=== PATIENT | female | born 1985 | race Caucasian/White ===

== ENCOUNTER 2017-01-16 19:49 | Emergency (ER) | payer OTHER ==
[2017-01-16 20:05] VITALS: BP 101/55; PULSE 76; RESP 18; TEMP 97.8
--- NOTE | 2017-01-16 20:17 | ED ---
Upper Extremity HPI - General Chief Complaint: Extremity Injury, Upper Stated Complaint: back & shoulder pain Time Seen by Provider: 01/16/17 20:07 Source: patient, RN notes reviewed Mode of arrival: ambulatory Limitations: no limitations - History of Present Illness Initial Comments: This a 31-year-old female presents emergency department to complaint of left shoulder injury. Patient states that at her rental house she was going up outside stairs and states the stairs gave him she fell through. Patient complains of of old pain after she tried to cut herself. Patient states she does have some soreness to her back but states that she had no injury to it. Patient states that she also has an abrasion to her right leg and she states her tetanus is up-to-date. Patient denies a paresthesias. Patient states she had a prior left clavicle fracture. She denies any head injury no LOC. Place: outdoors - Related Data Previous Rx's Medication Instructions Recorded Azithromycin [Zithromax] 0 mg PO DIRECTED #6 tab 04/13/15 Fluticasone Nasal [place] [Flonase 2 spray NASAL DAILY #1 bottle 04/13/15 Nasal [place]] Phenazopyridine HCl [Pyridium] 200 mg PO TID #6 tablet 04/13/15 Hydrocodone/Acetaminophen [Simpson 1 tab PO Q6HR PRN #15 tab 01/16/17 5-325] Allergies Allergy/AdvReac Type Severity Reaction Status Date / Time No Known Allergies Allergy Verified 01/16/17 20:05 Review of Systems ROS Statement: Those systems with pertinent positive or pertinent negative responses have been documented in the HPI. ROS Other: All systems not noted in ROS Statement are negative. Past Medical History Past Medical History: No Reported History Additional Past Medical History / Comment(s): sciatica History of Any Multi-Drug Resistant Organisms: None Reported Past Surgical History: Section Past Psychological History: No Psychological Hx Reported Smoking Status: Current every day smoker Past Alcohol Use History: None Reported Past Drug Use History: None Reported General Exam Limitations: no limitations General appearance: alert, in no apparent distress Neck exam: Present: normal inspection. Absent: tenderness, meningismus, lymphadenopathy Respiratory exam: Present: normal lung sounds bilaterally. Absent: respiratory distress, wheezes, rales, rhonchi, stridor Cardiovascular Exam: Present: regular rate, normal rhythm, normal heart sounds. Absent: systolic murmur, diastolic murmur, rubs, gallop, clicks Extremities exam: Present: other (Patient has old clavicle fracture deformity noted, left shoulder pain with range of motion though his for range of motion neurovascular intact there is no obvious deformity through the humeral region minimal tenderness with palpation) Back exam: Present: full ROM, tenderness (Mild left low back). Absent: paraspinal tenderness, vertebral tenderness Neurological exam: Present: alert, oriented X3, CN II-XII intact, reflexes normal. Absent: motor sensory deficit Course Vital Signs 01/16/17 20:01 Temperature 97.8 F Pulse Rate 76 Respiratory 18 Rate Blood Pressure 101/55 O2 Sat by Pulse 100 Oximetry Medical Decision Making - Medical Decision Making 31-year-old female presented to emergency department for shoulder pain. Patient had a fall through steps. Patient has an old clavicle fracture the radiologist felt this is new. Patient has good range of motion at this time. Patient's neurovascular intact she is recommended to follow-up with orthopedics. Disposition Clinical Impression: Nonunion of clavicle fracture, Strain of shoulder Disposition: HOME SELF-CARE Condition: Stable Instructions: Shoulder Sprain (ED) Additional Instructions: Please return to the Emergency Department if symptoms worsen or any other concerns. Prescriptions: Hydrocodone/Acetaminophen [Simpson 5-325] 1 tab PO Q6HR PRN #15 tab PRN Reason: Pain Referrals: None,Stated [Primary Care Provider] - 1-2 days Shane Regalado MD [STAFF PHYSICIAN] - 1-2 days Time of Disposition: 20:57
--- NOTE | 2017-01-16 20:31 | XR ---
EXAMINATION TYPE: XR shoulder complete LT DATE OF EXAM: 01/16/2017 CLINICAL HISTORY: Fall and subsequent left shoulder pain TECHNIQUE: Three views of the left shoulder are obtained. COMPARISON: None. FINDINGS: There is no acute fracture/dislocation evident in the left shoulder. However there is an obliquely oriented mid clavicular fracture with slight comminution as there is a 3 mm osseous fragmen t of the proximal clavicle. There is a 1.6 cm inferior displacement of the distal fracture fragment o n the oblique view with widening to 2.5 cm on the scapular Y view. No displaced rib fractures are charisse reciated. The acromioclavicular and glenohumeral joint spaces appear within normal limits. IMPRESSION: 1. Obliquely oriented mid clavicular fracture with inferior displacement of the distal fracture fragm ent. 2. There is no acute fracture or dislocation in the left shoulder. No displaced rib fractures.
== END 2017-01-16 21:05 | disposition home or self-care (01) ==
LOC: EC 19:49
DX: S46.912A Strain of unspecified muscle, fascia and tendon at shoulder and upper arm level, left arm, initial encounter (principal); S42.002K Fracture of unspecified part of left clavicle, subsequent encounter for fracture with nonunion; F17.200 Nicotine dependence, unspecified, uncomplicated; W10.9XXA Fall (on) (from) unspecified stairs and steps, initial encounter; Y92.89 Other specified places as the place of occurrence of the external cause
CPT/HCPCS: 99283

== ENCOUNTER 2018-01-20 20:22 | Emergency (ER) | payer OTHER ==
[2018-01-20 21:06] VITALS: BP 110/52; PULSE 69; RESP 16; TEMP 98
[2018-01-20] MEDS ORDERED: KETOROLAC 30 MG/ML 1 ML VIAL IM STA (21:16)
--- NOTE | 2018-01-20 21:57 | XR ---
EXAMINATION TYPE: XR lumbar spine 2 or 3V DATE OF EXAM: 01/20/2018 COMPARISON: NONE HISTORY: Back pain TECHNIQUE: 3 views FINDINGS: Lumbar vertebra have normal alignment. Disc spaces are fairly normal. Posterior elements ar e intact. I see no compression fracture. Sacroiliac joints appear intact. IMPRESSION: Negative lumbar spine exam.
--- NOTE | 2018-01-20 22:21 | ED ---
Back Pain HPI - General Chief Complaint: Back Pain/Injury Stated Complaint: back pain Time Seen by Provider: 01/20/18 21:09 Source: patient, RN notes reviewed Limitations: no limitations - History of Present Illness Initial Comments: This a 32-year-old female who denies H resents today for chief complaint of right-sided low back pain after fall. Patient states that around 11 AM this morning she was walking down her front porch stairs which have been rotting and she sates she has been complaining to her to landlord about this issue for the past 2 years when the porch gave way and she slid down ~4 stair. Pt denies hitting her head, LOC, injury to extremity. Pt noticed right sided back pain and bruising. Patient noted occasionally a sharp shooting pain down the right leg when ambulating, she states that this is not constant and happens only randomly for a few seconds. Patient denies loss of bowel bladder control, muscle weakness of the lower extremities, loss of sensation, numbness, tingling or paresthesias. Patient presented today because she was concerned about possible fracture. Pt applied ice but denies taking medication for the pain. Remainder of ROS (-). - Related Data Previous Rx's Medication Instructions Recorded Cyclobenzaprine [Flexeril] 5 mg PO HS 3 Days #3 tab 01/20/18 Ibuprofen [Motrin] 800 mg PO Q8H PRN 7 Days #21 tab 01/20/18 Allergies Allergy/AdvReac Type Severity Reaction Status Date / Time No Known Allergies Allergy Verified 01/20/18 21:06 Review of Systems ROS Statement: Those systems with pertinent positive or pertinent negative responses have been documented in the HPI. ROS Other: All systems not noted in ROS Statement are negative. Constitutional: Denies: fever, chills, weight change, night sweats Respiratory: Denies: cough, dyspnea, wheezes, hemoptysis, stridor Cardiovascular: Denies: chest pain, palpitations Gastrointestinal: Denies: abdominal pain, nausea, vomiting Genitourinary: Denies: urgency, dysuria Musculoskeletal: Reports: back pain, myalgia Skin: Reports: as per HPI. Denies: rash, lesions Neurological: Denies: headache, weakness, numbness, paresthesias, confusion, abnormal gait Past Medical History Past Medical History: No Reported History Additional Past Medical History / Comment(s): sciatica History of Any Multi-Drug Resistant Organisms: None Reported Past Surgical History: Section Past Psychological History: No Psychological Hx Reported Smoking Status: Current every day smoker Past Alcohol Use History: None Reported Past Drug Use History: None Reported General Exam - General Exam Comments Initial Comments: General: The patient is awake and alert, in no distress, and does not appear acutely ill. Eye: Pupils are equal, round and reactive to light, extra-ocular movements are intact. No nystagmus. There is normal conjunctiva bilaterally. No signs of icterus. Ears, nose, mouth and throat: There are moist mucous membranes and no oral lesions. Neck: The neck is supple, there is no tenderness or JVD. Cardiovascular: There is a regular rate and rhythm. No murmur, rub or gallop is appreciated. Respiratory: Lungs are clear to auscultation, respirations are non-labored, breath sounds are equal. No wheezes, stridor, rales, or rhonchi. Musculoskeletal: Large area of ecchymosis to the right side lower back. Pt is able to full flex forward and hyperextend, lateral flex and rotate at the lumbar spine. Pt admits to increased pain with forward flexion and rotation to the left. Strength 5/5 of the UE/LE equally b/l. Sensation intact of the LE equally b/l, including the inner upper thighs. DP pulses equal bilaterally 2+. Patient is able to heel and toe walk without difficulty.. Patient has right sided positive straight leg raise. +2/5 deep tendon reflexes bilaterally of the lower extremities, no evidence of mild posterior fasciculations. There is no midline tenderness to patient over the lumbar spine. Patient states that the pain is tender over the area of ecchymosis which is the right side of the lumbar spine. No palpable masses lumbar spine. Neurological: A&O x 3. CN II-XII intact, There are no obvious motor or sensory deficits. Coordination appears grossly intact. Speech is normal. Skin: Skin is warm and dry and no rashes or lesions are noted. Psychiatric: Cooperative, appropriate mood & affect, normal judgment. Limitations: no limitations Course Vital Signs 01/20/18 21:02 Temperature 98 F Pulse Rate 69 Respiratory 16 Rate Blood Pressure 110/52 O2 Sat by Pulse 99 Oximetry Medical Decision Making - Medical Decision Making X-rays lumbar spine were obtained revealing no acute process or fracture. Patient is given 30 mg IM injection of Toradol for pain management. For which he stated helped decrease the low back pain. Case was discussed in detail with Dr. Mcgee at this time feel patient is stable for discharge with diagnosis of contusion of the lumbar spine and low back strain. Patient is neurovascularly intact, no signs of symptoms of cauda equina at this time. Patient be discharged with a prescription for Flexeril 5 mg daily at bedtime 3 days, she was educated on the risk of overdose as well as instructed not to take while working, operate machinery, driving. Patient stated that she understood area in addition patient is instructed to use [id number] Tylenol or ibuprofen for pain management as needed and apply ice and heat alternating to the lumbar spine. Patient is instructed to follow-up with primary care provider one to 2 days. She verbalized understanding of plan. Patient denied any questions this time. Stated that she was happy with plan and discharged in stable condition. Disposition Clinical Impression: Contusion of lower back, Low back strain Disposition: HOME SELF-CARE Condition: Good Instructions: Low Back Strain (ED) Additional Instructions: Please use medication as discussed. Please follow-up with family doctor in the next 2 days of symptoms have not improved. Please return to emergency room if the symptoms increase or worsen or for any other concerns, as discussed. Prescriptions: Cyclobenzaprine [Flexeril] 5 mg PO HS 3 Days #3 tab Ibuprofen [Motrin] 800 mg PO Q8H PRN 7 Days #21 tab PRN Reason: Pain Is patient prescribed a controlled substance at d/c from ED?: No Referrals: Kelly Hoffman MD [Primary Care Provider] - 1-2 days Time of Disposition: 22:21
== END 2018-01-20 22:29 | disposition home or self-care (01) ==
LOC: EC 20:22
DX: S39.012A Strain of muscle, fascia and tendon of lower back, initial encounter (principal); F17.200 Nicotine dependence, unspecified, uncomplicated; W10.9XXA Fall (on) (from) unspecified stairs and steps, initial encounter; Y93.01 Activity, walking, marching and hiking; Y92.009 Unspecified place in unspecified non-institutional (private) residence as the place of occurrence of the external cause
CPT/HCPCS: 72100; 99283; 96372; J1885

== ENCOUNTER 2020-12-05 21:00 | Emergency (ER) | payer OTHER ==
[2020-12-05 21:06] VITALS: BP 120/54; PULSE 62; RESP 20; TEMP 98
[2020-12-05] MEDS ORDERED: ONDANSETRON 4 MG/2 ML VIAL IVP STA (21:15)
[2020-12-05] MEDS ORDERED: SODIUM CHLORIDE 0.9% 1,000 ML IV STA (21:15)
--- NOTE | 2020-12-05 21:17 | ED ---
Nausea/Vomiting/Diarrhea HPI - General Chief complaint: Nausea/Vomiting/Diarrhea Stated complaint: vomiting Time Seen by Provider: 12/05/20 21:08 Source: patient Mode of arrival: ambulatory Limitations: no limitations - History of Present Illness Initial comments: Patient is a 35-year-old woman who presents to be evaluated for nausea and vomiting. Symptoms started between 3 and 4 AM. She has had she states probably 20 episodes of vomiting. She also has had a little bit of lower abdominal pain. Patient has not noted fever or chills. No change in bowel movements or urination. No hematemesis or coffee-ground emesis. Patient states she is curre ntly having menstrual cycle MD complaint: nausea, vomiting Onset/Timin -: hour(s) Description of Vomiting: food contents Associated Abdominal Pain: Yes Location: LLQ, RLQ Radiation: none Severity: mild Quality: dull Consistency: constant Improves with: none Worsens with: none Associated Symptoms: denies other symptoms - Related Data Previous Rx's Medication Instructions Recorded Cyclobenzaprine [Flexeril] 5 mg PO HS 3 Days #3 tab 01/20/18 Ibuprofen [Motrin] 800 mg PO Q8H PRN 7 Days #21 tab 01/20/18 Ondansetron Odt [Zofran ODT] 4 mg PO Q8HR PRN #10 tab 12/05/20 Allergies Allergy/AdvReac Type Severity Reaction Status Date / Time No Known Allergies Allergy Verified 12/05/20 21:06 Review of Systems ROS Statement: Those systems with pertinent positive or pertinent negative responses have been documented in the HPI. ROS Other: All systems not noted in ROS Statement are negative. Constitutional: Denies: fever, chills Respiratory: Denies: cough, dyspnea Cardiovascular: Denies: chest pain, palpitations Gastrointestinal: Reports: abdominal pain, nausea, vomiting. Denies: diarrhea, constipation, hematemesis, melena, hematochezia Genitourinary: Denies: dysuria, frequency, hematuria, abnormal menses Musculoskeletal: Denies: back pain Skin: Denies: rash Neurological: Denies: headache Past Medical History Past Medical History: No Reported History Additional Past Medical History / Comment(s): sciatica pain History of Any Multi-Drug Resistant Organisms: None Reported Past Surgical History: Section Past Psychological History: No Psychological Hx Reported Smoking Status: Never smoker Past Alcohol Use History: None Reported Past Drug Use History: None Reported General Exam Limitations: no limitations General appearance: alert, in no apparent distress Head exam: Present: atraumatic, normocephalic Eye exam: Present: normal appearance Neck exam: Present: normal inspection Respiratory exam: Present: normal lung sounds bilaterally. Absent: respiratory distress, wheezes, rales, rhonchi, stridor Cardiovascular Exam: Present: regular rate, normal rhythm, normal heart sounds. Absent: systolic murmur, diastolic murmur, rubs, gallop GI/Abdominal exam: Present: soft, normal bowel sounds. Absent: distended, tenderness, guarding, rebound, rigid, mass, pulsatile mass, hernia Extremities exam: Present: normal inspection, normal capillary refill. Absent: pedal edema, calf tenderness Back exam: Present: normal inspection. Absent: CVA tenderness (R), CVA tenderness (L) Neurological exam: Present: alert Skin exam: Present: warm, dry, intact, normal color. Absent: rash Course Vital Signs 12/05/20 21:04 Temperature 98 F Pulse Rate 62 Respiratory 20 Rate Blood Pressure 120/54 O2 Sat by Pulse 97 Oximetry Medical Decision Making - Medical Decision Making Patient is 35-year-old woman with vomiting and small amount of abdominal pain. On reevaluation after fluids and antiemetics she is feeling better. She states that her pain is gone. I discussed the test results and the fact that although her white blood cell count is normal this may indeed represent early onset of appendicitis and she should return should her symptoms recur or if she is not back to normal. Patient expressed understanding of these instructions. - Lab Data Result diagrams: 12/05/20 21:15 12/05/20 21:15 Lab Results 12/05/20 12/05/20 12/05/20 Range/Units 21:15 21:15 21:15 WBC 10.5 (3.8-10.6) k/uL RBC 4.40 (3.80-5.40) m/uL Hgb 12.0 (11.4-16.0) gm/dL Hct 34.6 (34.0-46.0) % MCV 78.7 L (80.0-100.0) fL MCH 27.3 (25.0-35.0) pg MCHC 34.7 (31.0-37.0) g/dL RDW 13.9 (11.5-15.5) % Plt Count 403 (150-450) k/uL MPV 6.5 Neutrophils % 83 % Lymphocytes % 13 % Monocytes % 3 % Eosinophils % 1 % Basophils % 0 % Neutrophils # 8.7 H (1.3-7.7) k/uL Lymphocytes # 1.3 (1.0-4.8) k/uL Monocytes # 0.3 (0-1.0) k/uL Eosinophils # 0.1 (0-0.7) k/uL Basophils # 0.0 (0-0.2) k/uL Sodium (137-145) mmol/L Potassium (3.5-5.1) mmol/L Chloride (98-107) mmol/L Carbon Dioxide (22-30) mmol/L Anion Gap mmol/L BUN (7-17) mg/dL Creatinine (0.52-1.04) mg/dL Est GFR (CKD-EPI)AfAm (>60 ml/min/1.73 sqM) Est GFR (CKD-EPI)NonAf (>60 ml/min/1.73 sqM) Glucose (74-99) mg/dL Calcium (8.4-10.2) mg/dL Total Bilirubin (0.2-1.3) mg/dL AST (14-36) U/L ALT (4-34) U/L Alkaline Phosphatase (38-126) U/L C-Reactive Protein (<1.0) mg/dL Total Protein (6.3-8.2) g/dL Albumin (3.5-5.0) g/dL Amylase (30-110) U/L Lipase (23-300) U/L Urine Color Yellow Urine Appearance Turbid H (Clear) Urine pH 5.5 (5.0-8.0) Ur Specific [place] 1.032 (1.001-1.035) Urine Protein 1+ H (Negative) Urine Glucose (UA) Negative (Negative) Urine Ketones Trace H (Negative) Urine Blood Moderate H (Negative) Urine Nitrite Negative (Negative) Urine Bilirubin Negative (Negative) Urine Urobilinogen <2.0 (<2.0) mg/dL Ur Leukocyte Esterase Negative (Negative) Urine RBC 1 (0-5) /hpf Amorphous Sediment Many H (None) /hpf Urine Mucus Many H (None) /hpf Urine HCG, Qual Not Detected (Not Detectd) 12/05/20 Range/Units 21:15 WBC (3.8-10.6) k/uL RBC (3.80-5.40) m/uL Hgb (11.4-16.0) gm/dL Hct (34.0-46.0) % MCV (80.0-100.0) fL MCH (25.0-35.0) pg MCHC (31.0-37.0) g/dL RDW (11.5-15.5) % Plt Count (150-450) k/uL MPV Neutrophils % % Lymphocytes % % Monocytes % % Eosinophils % % Basophils % % Neutrophils # (1.3-7.7) k/uL Lymphocytes # (1.0-4.8) k/uL Monocytes # (0-1.0) k/uL Eosinophils # (0-0.7) k/uL Basophils # (0-0.2) k/uL Sodium 139 (137-145) mmol/L Potassium 3.7 (3.5-5.1) mmol/L Chloride 105 (98-107) mmol/L Carbon Dioxide 22 (22-30) mmol/L Anion Gap 12 mmol/L BUN 13 (7-17) mg/dL Creatinine 0.62 (0.52-1.04) mg/dL Est GFR (CKD-EPI)AfAm >90 (>60 ml/min/1.73 sqM) Est GFR (CKD-EPI)NonAf >90 (>60 ml/min/1.73 sqM) Glucose 118 H (74-99) mg/dL Calcium 9.9 (8.4-10.2) mg/dL Total Bilirubin 0.7 (0.2-1.3) mg/dL AST 23 (14-36) U/L ALT 13 (4-34) U/L Alkaline Phosphatase 71 (38-126) U/L C-Reactive Protein 1.0 H (<1.0) mg/dL Total Protein 7.8 (6.3-8.2) g/dL Albumin 4.7 (3.5-5.0) g/dL Amylase 49 (30-110) U/L Lipase 34 (23-300) U/L Urine Color Urine Appearance (Clear) Urine pH (5.0-8.0) Ur Specific [place] (1.001-1.035) Urine Protein (Negative) Urine Glucose (UA) (Negative) Urine Ketones (Negative) Urine Blood (Negative) Urine Nitrite (Negative) Urine Bilirubin (Negative) Urine Urobilinogen (<2.0) mg/dL Ur Leukocyte Esterase (Negative) Urine RBC (0-5) /hpf Amorphous Sediment (None) /hpf Urine Mucus (None) /hpf Urine HCG, Qual (Not Detectd) Disposition Clinical Impression: Vomiting Disposition: HOME SELF-CARE Condition: Good Instructions (If sedation given, give patient instructions): Acute Nausea and Vomiting (ED) Prescriptions: Ondansetron Odt [Zofran ODT] 4 mg PO Q8HR PRN #10 tab PRN Reason: Nausea Is patient prescribed a controlled substance at d/c from ED?: No Referrals: Kelly Hoffman MD [Primary Care Provider] - 1-2 days
[2020-12-05 21:34] LABS: Basophils % (A) 0 %; Eosinophils # (A) 0.1 k/uL (0-0.7); Eosinophils % (A) 1 %; HCT 34.6 % (34.0-46.0); Lymphocytes # (A) 1.3 k/uL (1.0-4.8); Lymphocytes % (A) 13 %; MCH 27.3 pg (25.0-35.0); MCHC 34.7 g/dL (31.0-37.0); MCV 78.7 fL (80.0-100.0); Mean Platelet Volume 6.5; Monocytes # (A) 0.3 k/uL (0-1.0); Monocytes % (A) 3 %; Neutrophils # (A) 8.7 k/uL (1.3-7.7); Neutrophils % (A) 83 %; Platelet Count 403 k/uL (150-450); RDW 13.9 % (11.5-15.5); WBC 10.5 k/uL (3.8-10.6)
[2020-12-05 21:50] LABS: ALT 13 U/L (4-34); AST 23 U/L (14-36); African American GFR (CKD) >90 (>60 ml/min/1.73 sqM); Albumin 4.7 g/dL (3.5-5.0); Alkaline Phosphatase 71 U/L (38-126); Amylase 49 U/L (30-110); Anion Gap 12 mmol/L; Blood Urea Nitrogen 13 mg/dL (7-17); Calcium 9.9 mg/dL (8.4-10.2); Carbon Dioxide 22 mmol/L (22-30); Chloride 105 mmol/L (98-107); Glucose 118 mg/dL (74-99); Lipase 34 U/L (23-300); Non-African American GFR(CKD) >90 (>60 ml/min/1.73 sqM); Potassium 3.7 mmol/L (3.5-5.1); Sodium 139 mmol/L (137-145); Total Bilirubin 0.7 mg/dL (0.2-1.3); Total Protein 7.8 g/dL (6.3-8.2)
[2020-12-05 22:04] LABS: Amorphous Sediment,Urine Many /hpf; Appearance,Urine Turbid (Clear); Bilirubin,Urine Negative (Negative); Blood,Urine Moderate (Negative); Color,Urine Yellow; Glucose,Urine (UA) Negative (Negative); Ketones,Urine Trace (Negative); Leukocyte Esterase,Urine Negative (Negative); Mucus,Urine Many /hpf; Nitrite,Urine Negative (Negative); PH, Urine 5.5 (5.0-8.0); Protein,Urine 1+ (Negative); RBC,Urine 1 /hpf (0-5); Specific Gravity,Urine 1.032 (1.001-1.035); Urobilinogen,Urine <2.0 mg/dL (<2.0)
== END 2020-12-05 22:35 | disposition home or self-care (01) ==
LOC: EC 21:00
DX: R11.10 Vomiting, unspecified (principal); R10.32 Left lower quadrant pain; R10.31 Right lower quadrant pain
CPT/HCPCS: 36415; 80053; 82150; 83690; 85025; 86140; 81001; 81025; 99284; 96374; 96361; J2405

== ENCOUNTER 2023-08-11 09:26 | Emergency (ER) | payer BC, OTHER ==
--- NOTE | 2023-08-11 09:55 | ED ---
ENT HPI - General Chief complaint: ENT Stated complaint: Sore Throat, Runny Nose Time Seen by Provider: 08/11/23 09:46 Source: patient, RN notes reviewed Mode of arrival: ambulatory Limitations: no limitations - History of Present Illness Initial comments: Patient is a 38-year-old female presented to the ER with chief complaint of sore throat. She states she has been experiencing a sore throat since . She reports her fianc recently diagnosed with strep throat. She also reports she has been feeling feverish. She states it is painful to swallow and eat. Also endorsing ear pressure and a lump in her throat. She describes it as "two balls" in her throat. She has been taking [id number] Robitussin without relief. Denies any chest pain, shortness of breath, abdominal pain, constipation/diarrhea, urinary complaints or peripheral edema. - Related Data Previous Rx's Medication Instructions Recorded Ondansetron Odt [Zofran ODT] 4 mg PO Q8HR PRN #10 tab 12/05/20 Amoxicillin 500 mg PO BID 10 Days #20 capsule 08/11/23 Allergies Allergy/AdvReac Type Severity Reaction Status Date / Time No Known Allergies Allergy Verified 08/11/23 09:31 Review of Systems ROS Statement: Those systems with pertinent positive or pertinent negative responses have been documented in the HPI. ROS Other: All systems not noted in ROS Statement are negative. Past Medical History Past Medical History: No Reported History Additional Past Medical History / Comment(s): sciatica pain History of Any Multi-Drug Resistant Organisms: None Reported Past Surgical History: Section Past Psychological History: No Psychological Hx Reported Smoking Status: Never smoker Past Alcohol Use History: None Reported Past Drug Use History: None Reported General Exam Limitations: no limitations General appearance: alert, in no apparent distress Head exam: Present: atraumatic, normocephalic, normal inspection Eye exam: Present: normal appearance, PERRL, EOMI. Absent: scleral icterus, conjunctival injection, periorbital swelling ENT exam: Present: normal exam, normal oropharynx (Erythematous), mucous membranes moist, TM's normal bilaterally Neck exam: Present: normal inspection, tenderness (Tonsils) Respiratory exam: Present: normal lung sounds bilaterally. Absent: respiratory distress, wheezes, rales, rhonchi, stridor Cardiovascular Exam: Present: regular rate, normal rhythm, normal heart sounds. Absent: systolic murmur, diastolic murmur, rubs, gallop, clicks GI/Abdominal exam: Present: soft, normal bowel sounds. Absent: distended, t enderness, guarding, rebound, rigid Neurological exam: Present: alert, oriented X3, CN II-XII intact Psychiatric exam: Present: normal affect, normal mood Skin exam: Present: warm, dry, intact, normal color. Absent: rash Course Vital Signs 08/11/23 08/11/23 09:30 11:18 Temperature 98.2 F 97.6 F Pulse Rate 90 86 Respiratory 18 20 Rate Blood Pressure 120/75 120/73 O2 Sat by Pulse 98 99 Oximetry Medical Decision Making - Medical Decision Making Was pt. sent in by a medical professional or institution (, PA, INSURANCE OPERATIONS REP, urgent care, hospital, or assisted...) When possible be specific @ -No Did you speak to anyone other than the patient for history (EMS, parent, family, police, friend...)? What history was obtained from this source @ -No Did you review nursing and triage notes (agree or disagree)? Why? @ -I reviewed and agree with nursing and triage notes Were old charts reviewed (outside hosp., previous admission, EMS record, old EKG, old radiological studies, urgent care reports/EKG's, assisted records)? Report findings @ -No old charts were reviewed Differential Diagnosis (chest pain, altered mental status, abdominal pain women, abdominal pain men, vaginal bleeding, weakness, fever, dyspnea, syncope, headache, dizziness, GI bleed, back pain, seizure, CVA, palpatations, mental health, musculoskeletal)? @ -COVID, RSV, influenza, viral sinusitis, pneumonia this list is not meant to be all-inclusive EKG interpreted by me (3pts min.). @ -None X-rays interpreted by me (1pt min.). @ -None done CT interpreted by me (1pt min.). @ -None done U/S interpreted by me (1pt. min.). @ -None done What testing was considered but not performed or refused? (CT, X-rays, U/S, labs)? Why? @ -None What meds were considered but not given or refused? Why? @ -None Did you discuss the management of the patient with other professionals (professionals i.e. , PA, INSURANCE OPERATIONS REP, lab, RT, psych nurse, social work administrator, ship laborer, teacher, first officer and flight instructor, case management rn)? Give summary @ -No Was smoking cessation discussed for >3mins.? @ -I discussed smoking cessation for greater than 3 minutes. The risk of smoking were discussed with the patient including but not limited to risks of cancer, stroke, coronary artery disease and COPD. Also discussed with patient were multiple methods of quitting smoking. Lastly we discussed the financial cost of smoking. Was critical care preformed (if so, how long)? @ -No Were there social determinants of health that impacted care today? How? (Homelessness, low income, unemployed, alcoholism, drug addiction, transportation, low edu. Level, literacy, decrease access to med. care, shelter, rehab)? @ -No Was there de-escalation of care discussed even if they declined (Discuss DNR or withdrawal of care, Hospice)? DNR status @ -No What co-morbidities impacted this encounter? (DM, HTN, Smoking, COPD, CAD, Cancer, CVA, ARF, Chemo, Hep., AIDS, mental health diagnosis, sleep apnea, morbid obesity)? @ -Vaper Was patient admitted / discharged? Hospital course, mention meds given and route, prescriptions, significant lab abnormalities, going to OR and other pertinent info. @ -Discharge. Patient is a 38-year-old female presented to the ER with chief complaint of sore throat. History and physical exam completed. Vitals stable. Patient in no signs of acute distress and nontoxic-appearing. Posterior pharynx erythematous no evidence of exudates. Lung sounds clear to auscultation bilaterally. Strep a positive. COVID, RSV, influenza negative. Patient received by mouth Tylenol for symptom control in the ER. Results discussed with patient, all questions answered. Prescribed amoxicillin. I educated on portance of completing full course of antibiotics. Advised [id number] Tylenol and Motrin for fever and pain control. I discussed smoking cessation for greater than 3 minutes. The risk of smoking were discussed with the patient including but not limited to risks of cancer, stroke, coronary artery disease and COPD. Also discussed with patient were multiple methods of quitting smoking. Lastly we discussed the financial cost of smoking. Strict return parameters discussed. Patient discharged stable condition with follow-up to PCP. Patient expressed understanding and agreement with care plan. Case discussed with ED attending, Dr. Lombardi. Undiagnosed new problem with uncertain prognosis? @ -No Drug Therapy requiring intensive monitoring for toxicity (Heparin, Nitro, Insulin, Cardizem)? @ -No Were any procedures done? @ -No Diagnosis/symptom? @ -Strep pharyngitis Acute, or Chronic, or Acute on Chronic? @ -Acute Uncomplicated (without systemic symptoms) or Complicated (systemic symptoms)? @ -Uncomplicated Side effects of treatment? @ -No Exacerbation, Progression, or Severe Exacerbation? @ -No Poses a threat to life or bodily function? How? (Chest pain, [place], [place], pneumonia, PE, COPD, DKA, ARF, appy, cholecystitis, CVA, Diverticulitis, Homicidal, Suicidal, threat to staff... and all critical care pts) @ -No - Lab Data Lab Results 08/11/23 08/11/23 Range/Units 09:48 09:48 Influenza Type A (PCR) Not Detected (Not Detectd) Influenza Type B (PCR) Not Detected (Not Detectd) RSV (PCR) Not Detected (Not Detectd) SARS-CoV-2 (PCR) Not Detected (Not Detectd) Group A Strep (PCR) DETECTED A (Not Detectd) Disposition Clinical Impression: Strep pharyngitis Disposition: HOME SELF-CARE Condition: Stable Instructions (If sedation given, give patient instructions): Strep Throat (DC) Additional Instructions: Complete full course of antibiotics. You may take OTC tylenol and motrin for fever control. Follow-up with PCP. Return to the ER for any new or worsening symptoms. Prescriptions: Amoxicillin 500 mg PO BID 10 Days #20 capsule Is patient prescribed a controlled substance at d/c from ED?: No Referrals: Ba Lundberg MD [Primary Care Provider] - 1-2 days Time of Disposition: 10:46
[2023-08-11] MEDS: ACETAMINOPHEN TAB 325 MG TAB PO STA (09:56)
[2023-08-11 11:43] VITALS: BP 120/73; PULSE 86; RESP 20; TEMP 97.6
== END 2023-08-11 11:20 | disposition home or self-care (01) ==
LOC: EC 09:26
DX: J02.0 Streptococcal pharyngitis (principal); F17.290 Nicotine dependence, other tobacco product, uncomplicated; Z20.822 Contact with and (suspected) exposure to COVID-19
CPT/HCPCS: 87636; 87651; 99283; 99406

== ENCOUNTER 2024-11-26 12:15 | Day surgery (SDC) | payer BC ==
[~2024-11-26 12:15] MED LIST: LIDOCAINE 1% (10MG/ML) FOR IV START INTRADERMA PRN
[2024-11-26 12:52] VITALS: TEMP 97.4
[2024-11-26] MEDS: IV FLUID CONTINUATION 1,000 ML IV ONE (12:52)
[2024-11-26] MEDS: LACTATED RINGERS 1,000 ML IV SCH (12:52)
[2024-11-26] MEDS ORDERED: PROPOFOL 10 MG/ML 20 ML VIAL IV ONE (13:33)
[2024-11-26 14:08] VITALS: BP 113/60; PULSE 54; RESP 17
[2024-11-26] MEDS: ONDANSETRON 4 MG/2 ML VIAL IVP STA (14:10)
--- NOTE | 2024-11-26 14:15 | P.OP ---
Date of Procedure: 11/26/24 Preoperative Diagnosis: Positive Cologuard Postoperative Diagnosis: Hemorrhoids Procedure(s) Performed: Colonoscopy Anesthesia: MAC Surgeon: Eric Quezada Pathology: none sent Condition: stable Disposition: PACU Description of Procedure: After informed consent was obtained, the patient was placed in the left lateral position and the above medications were titrated with adequate sedation. Monitoring was provided throughout the entire procedure. Digital rectal exam was performed revealing normal sphincter tone and there were external hemorrhoids. The colonoscope was inserted into rectum and advanced under direct visualization, without difficulty, to the cecum, where the cecal strap, appendiceal orifice, and the ileocecal valve were identified. The quality of the preparation was good. The colonoscope was then withdrawn while carefully examining the mucosa. The colonic mucosa appeared normal with normal vascularity and haustral markings. No masses, polyps, AVM/s or diverticula were seen. On retroflexed view in the rectum, there are small internal hemorrhoids. The endoscope was removed and the procedure terminated. The patient tolerated the procedure well without complications.
== END 2024-11-26 14:28 | disposition home or self-care (01) ==
LOC: ORWHC2ENDO 12:15
PROVIDERS: ATTEND Surgery
DX: K64.8 Other hemorrhoids (principal); F17.290 Nicotine dependence, other tobacco product, uncomplicated
CPT/HCPCS: 81025; 45378; J2405; J2704